=== PATIENT | male | born 1940 | race Caucasian/White ===

== ENCOUNTER 2016-10-03 06:51 | Day surgery (SDC) | payer MEDICARE, OTHER ==
--- NOTE | ~2016-10-03 | EGD ---
EGD REPORT [facility] [address] [place] [address] NAME: ABDIAS GUNN : 40 STATUS : REG [facility]#: [id number] AGE: 76 ADM/REG DATE : 10/03/16 MR#: [id number] REPORT SERV DATE: 10/03/16 DICTATED BY: ESVIN MARTINEZ DATE: 10/03/16 REPORT STATUS : Draft [facility]ANSCRIBED BY: [facility] DATE: 10/03/16 [facility] Patient Name: Abdias Gunn Date of : 1940 Attending MD: ESVIN MARTINEZ MD Procedure Date No Time: 10/03/2016 Procedure: Colonoscopy Indications: High risk colon cancer surveillance: Personal history of colon cancer Referring MD: Sean REDMOND II Medicines: Monitored Anesthesia Care Complications: No immediate complications. Procedure: Pre-Anesthesia Assessment: - ASA Grade Assessment: III - A patient with severe systemic disease. After I obtained informed consent, the scope was passed under direct vision. Throughout the procedure, the patient's blood pressure, pulse, and oxygen saturations were monitored continuously. The CF [id number] was introduced through the anus and advanced to the ileocolonic anastomosis. The colonoscopy was performed without difficulty. The patient tolerated the procedure well. The quality of the bowel preparation was good. Findings: The digital rectal exam was normal. Two sessile polyps were found in the transverse colon. The polyps were 8 to 10 mm in size. These polyps were removed with a cold snare. Resection and retrieval were complete. A sessile polyp was found in the sigmoid colon. The polyp was 5 mm in size. The polyp was removed with a cold biopsy forceps. Resection and retrieval were complete. A pedunculated polyp was found in the rectum. The polyp was 10 mm in size. The polyp was removed with a hot snare. Resection and retrieval were complete. Hemorrhoids were found during retroflexion and were mild. Impression: - Two 8 to 10 mm polyps in the transverse colon. Resected and retrieved. - One 5 mm polyp in the sigmoid colon. Resected and retrieved. - One 10 mm polyp in the rectum. Resected and retrieved. - Hemorrhoids. Recommendation: - Patient has a contact number available for EGD REPORT [address] [address] NAME: ABDIAS GUNN : 40 STATUS : REG [facility] PAT#: [id number] AGE: 76 ADM/REG DATE : 10/03/16 MR#: [id number] REPORT SERV DATE: 10/03/16 DICTATED BY: ESVIN MARTINEZ DATE: 10/03/16 REPORT STATUS : Draft TRANSCRIBED BY: [employer] DATE: 10/03/16 emergencies. The signs and symptoms of potential delayed complications were discussed with the patient. Return to normal activities tomorrow. Written discharge instructions were provided to the patient. - Regular diet. - Continue present medications. - Repeat colonoscopy in 3 years for surveillance. - Return to GI clinic PRN. Procedure Code(s): --- Professional --- 49801, Colonoscopy, flexible, proximal to splenic flexure; with removal of tumor(s), polyp(s), or other lesion(s) by snare technique 05200, 59, Colonoscopy, flexible, proximal to splenic flexure; with biopsy, single or multiple Diagnosis Code(s): --- Professional --- K62.1, Rectal polyp D12.5, Benign neoplasm of sigmoid colon D12.3, Benign neoplasm of transverse colon K64.9, Unspecified hemorrhoids Z85.038, Personal history of other malignant neoplasm of large intestine CPT copyright 2013 [employer]. All rights reserved. The codes documented in this report are preliminary and upon inspector semiconductor wafer review may be revised to meet current compliance requirements. ESVIN MARTINEZ MD 10/03/2016 8:59 AM This report has been signed electronically. Number of Addenda: 0 Note Initiated On: 10/03/2016 8:26 AM Scope Withdrawal Time 0 hours 18 minutes 42 seconds [address] [id number]
[~2016-10-03 06:51] MED LIST: ACTOS30 PO; AMARYL2 PO; ASAB PO; CEFAZ1; COREG12 PO; COREG25 PO; COZAAR100 MG PO; DIABETA5 PO; GLUCOPHAGE1000 MG PO; HUMALOG SC; HUMULIN R1 ML SC; HYDROCHLOROT12.5 MG PO; LANTUSCART SC; LIPITOR20 PO; LOP50 PO; MICRONASE5 MG PO; NITROSTAT0.4 MG SL; NORCO1 TAB PO; NORV5 PO; PLAVIX PO; PRILO PO; PRIN10 PO; ZOCOR40 PO
[2017-01-09] MEDS ORDERED: NORV5 PO (10:48)
[2017-01-09] MEDS ORDERED: NITROSTAT0.4 MG SL (10:51)
[2017-01-09] MEDS ORDERED: ELIQUIS 5 MG TAB5 MG PO (10:51)
== END 2016-10-03 23:59 | disposition home health service (06) ==
LOC: DMU 06:51
PROVIDERS: Internal Medicine Gastroenterology
PROC: 0DBN8ZX Excision of Sigmoid Colon, Via Natural or Artificial Opening Endoscopic, Diagnostic (ICD-10-PCS; 2016-10-03)
PROC: 0DBP8ZZ Excision of Rectum, Via Natural or Artificial Opening Endoscopic (ICD-10-PCS; principal; 2016-10-03 08:30)
PROC: 0DBL8ZZ Excision of Transverse Colon, Via Natural or Artificial Opening Endoscopic (ICD-10-PCS; 2016-10-03 08:30)
DX: Z12.11 Encounter for screening for malignant neoplasm of colon (principal); D12.3 Benign neoplasm of transverse colon; D12.8 Benign neoplasm of rectum; D12.5 Benign neoplasm of sigmoid colon; E11.9 Type 2 diabetes mellitus without complications; I25.10 Atherosclerotic heart disease of native coronary artery without angina pectoris; I10 Essential (primary) hypertension; E78.00 Pure hypercholesterolemia, unspecified; K21.9 Gastro-esophageal reflux disease without esophagitis; I25.2 Old myocardial infarction; K64.9 Unspecified hemorrhoids; Z85.038 Personal history of other malignant neoplasm of large intestine; Z87.891 Personal history of nicotine dependence; Z90.49 Acquired absence of other specified parts of digestive tract; Z89.411 Acquired absence of right great toe; Z98.890 Other specified postprocedural states
CPT/HCPCS: 82962; 88305